=== PATIENT | male | born 1975 | race American Indian/Alaskan Native ===

== ENCOUNTER 2016-04-23 18:06 | Emergency (ER) | payer MEDICAID, OTHER ==
[2016-04-23 18:24] VITALS: BP 143/92
[2016-04-23] MEDS ORDERED: MVI, Adult with Vitamin K 10 ML, Thiamine 100 MG, Folic Acid 1 MG in Lactated Ringers 1... IV ONE ×4 (19:04)
[2016-04-23 19:50] LABS: CHLORIDE,CL 101 mmol/L (101-111); SODIUM,NA 136 mmol/L (135-145)
--- NOTE | 2016-04-23 20:36 | EDM.PDOC ---
ED HPI Behavioral Health - General Chief Complaint: Drug or Alcohol Abuse Stated Complaint: LIVER Time Seen by Provider: 04/23/16 19:05 Source of Information: Reports: Patient Exam Limitations: Reports: No limitations - History of Present Illness INITIAL COMMENTS - FREE TEXT/NARRATIVE: C/O alcohol withdrawal symptoms and unable to sleep. Notes last drink on Thursday. Had been drinking 1/2 gallon of vodka for past week. Has experienced sweats, hearing and seeing things. On arrival was hearing music but that has now resolved. No prior withdrawal seizures. Has been through treatment many times. Starts to drink when alone. Denies other drug use. - Related Data Allergies Allergy/AdvReac Type Severity Reaction Status Date / Time cephalexin Allergy Chills Uncoded 04/23/16 18:25 codeine Allergy Nausea Uncoded 04/23/16 18:25 Home Medications: Home Meds metFORMIN [Glucophage XR] 500 mg PO BIDMEALS 12/23/15 [History] Aspirin 650 mg PO Q4H PRN 04/23/16 [History] Metoprolol Succinate [Toprol XL] 25 mg PO DAILY 04/23/16 [History] atorvaSTATin [Lipitor] 40 mg PO DAILY 04/23/16 [History] Past Medical History - Past Health History Medical/Surgical History: Denies Medical/Surgical History HEENT History: Reports: None Cardiovascular History: Reports: High cholesterol, Hypertension Respiratory History: Reports: Other (see below) Other Respiratory History: tuberculosis Gastrointestinal History: Reports: None Genitourinary History: Reports: None Musculoskeletal History: Reports: None Neurological History: Reports: Head trauma Psychiatric History: Reports: Addiction, Panic attack Endocrine/Metabolic History: Reports: Diabetes, type II Hematologic History: Reports: None Immunologic History: Reports: None Oncologic (Cancer) History: Reports: None Dermatologic History: Reports: None - Infectious Disease History Infectious Disease History: Reports: Chicken pox, TB - Past Surgical History Head Surgeries/Procedures: Reports: None Social & Family History - Family History Family Medical History: Noncontributory - Tobacco Use Smoking Status *Q: Current Every Day Smoker Years of Tobacco use: 1 Packs/Tins Daily: 0.5 Used Tobacco, but Quit: No Second Hand Smoke Exposure: No - Caffeine Use Caffeine Use: Reports: Coffee - Alcohol Use Days Per Week of Alcohol Use: 7 Number of Drinks Per Day: 10 Total Drinks Per Week: 70 Date of Last Drink: 04/23/16 Time of Last Drink: 15:00 - Recreational Drug Use Recreational Drug Use: No Drug Use in Last 12 Months: Yes Recreational Drug Type: Reports: Marijuana/Hashish - Living Situation & Occupation Living situation: Reports: with significant other, with family Occupation: employed ED ROS GENERAL - Review of Systems Review Of Systems: See Below Constitutional: Reports: diaphoresis, decreased appetite HEENT: Reports: No symptoms Respiratory: Reports: no symptoms Cardiovascular: Reports: No symptoms GI/Abdominal: Reports: Nausea (resolved) : Reports: no symptoms Musculoskeletal: Reports: no symptoms Neurological: Denies: tremors Psychiatric: Reports: Anxiety ED EXAM, BEHAVIORAL HEALTH - Physical Exam Exam: See Below Exam Limited By: No limitations General Appearance: alert, no apparent distress Eye Exam: bilateral eye: EOMI, PERRL Ears: normal external exam Nose: normal inspection Throat/Mouth: Normal inspection Head: atraumatic, normocephalic Neck: normal inspection Respiratory/Chest: no respiratory distress, lungs clear, normal breath sounds Cardiovascular: normal peripheral pulses, regular rate, rhythm GI/Abdominal: normal bowel sounds, soft, non tender Extremities: normal inspection Neurological: alert, normal mood/affect, no motor/sensory deficits, oriented x 3 , tremor (fine tremor on arrival ) Psychiatric: alert, normal affect, normal cognition, auditory hallucinations ( resolved), visual hallucinations (resolved) Skin Exam: Warm, Dry, Intact, Tattoo(s) COURSE, BEHAVIORAL HEALTH COMP - Course Vital Signs: Last Vital Signs Temp 98.2 F 04/23/16 18:15 Pulse 100 04/23/16 18:15 Resp 16 04/23/16 18:15 BP 143/92 H 04/23/16 18:15 Pulse Ox 100 04/23/16 18:15 Orders, Labs, Meds: Active Orders 24 hr Category Date Time Status CIWAA Assessment [RC] ONETIME Care 04/23/16 19:06 Active Laboratory Tests 04/23/16 04/23/16 04/23/16 Range/Units 19:08 19:08 19:14 WBC 8.8 (5.0-10.0) 10^3/uL RBC 5.24 (4.6-6.2) 10^6/uL Hgb 16.4 (14.0-18.0) g/dL Hct 47.1 (40.0-54.0) % MCV 89.9 (80-100) fL MCH 31.3 (27.0-34.0) pg MCHC 34.8 (33.0-35.0) g/dL Plt Count 159 (150-450) 10^3/uL Neut % (Auto) 74.4 (42.2-75.2) % Lymph % (Auto) 12.7 L (20.5-50.1) % [place] % (Auto) 7.5 (2-8) % Eos % (Auto) 4.9 H (1.0-3.0) % Baso % (Auto) 0.5 (0.0-1.0) % Sodium (135-145) mmol/L Potassium (3.6-5.0) mmol/L Chloride (101-111) mmol/L Carbon Dioxide (21.0-31.0) mmol/L Anion Gap BUN (7-18) mg/dL Creatinine (0.6-1.3) mg/dL Est Cr Clr Drug Dosing mL/min Estimated GFR (MDRD) BUN/Creatinine Ratio Glucose (74-105) mg/dL Calcium (8.4-10.2) mg/dl Total Bilirubin (0.2-1.0) mg/dL AST (10-42) IU/L ALT (10-60) IU/L Alkaline Phosphatase (42-121) IU/L Ammonia (11-35) umol/L Total Protein (6.7-8.2) g/dl Albumin (3.2-5.5) g/dl Globulin Albumin/Globulin Ratio Amylase (28-100) U/L Lipase (22-51) U/L Urine Color Yellow (YELLOW) Urine Appearance Clear (CLEAR) Urine pH 5.5 (5.0-9.0) Ur Specific [place] 1.020 (1.005-1.030) Urine Protein 30 H (NEGATIVE) Urine Glucose (UA) Negative (NEGATIVE) Urine Ketones 15 H (NEGATIVE) Urine Occult Blood Trace-intact H (NEGATIVE) Urine Nitrite Negative (NEGATIVE) Urine Bilirubin Negative (NEGATIVE) Urine Urobilinogen 0.2 (0.2-1.0) mg/dL Ur Leukocyte Esterase Negative (NEGATIVE) Urine RBC 0-5 /HPF Urine WBC 0-5 (0-5/HPF) /HPF Ur Epithelial Cells Occasional /HPF Urine Bacteria Few (0-FEW/HPF) /HPF Urine Mucus Few H /LPF Urine Opiates Screen Negative (NEGATIVE) Ur Oxycodone Screen Negative (NEGATIVE) Urine Methadone Screen Negative (NEGATIVE) Ur Barbiturates Screen Negative (NEGATIVE) U Tricyclic Antidepress Negative (NEGATIVE) Ur Phencyclidine Scrn Negative (NEGATIVE) Ur Amphetamine Screen Negative (NEGATIVE) U Methamphetamines Scrn Negative (NEGATIVE) Urine MDMA Screen Negative (NEGATIVE) U Benzodiazepines Scrn Negative (NEGATIVE) Urine Cocaine Screen Negative (NEGATIVE) U Marijuana (THC) Screen Negative (NEGATIVE) Ethyl Alcohol mg/dL 04/23/16 04/23/16 Range/Units 19:14 19:14 WBC (5.0-10.0) 10^3/uL RBC (4.6-6.2) 10^6/uL Hgb (14.0-18.0) g/dL Hct (40.0-54.0) % MCV (80-100) fL MCH (27.0-34.0) pg MCHC (33.0-35.0) g/dL Plt Count (150-450) 10^3/uL Neut % (Auto) (42.2-75.2) % Lymph % (Auto) (20.5-50.1) % [place] % (Auto) (2-8) % Eos % (Auto) (1.0-3.0) % Baso % (Auto) (0.0-1.0) % Sodium 136 (135-145) mmol/L Potassium 3.7 (3.6-5.0) mmol/L Chloride 101 (101-111) mmol/L Carbon Dioxide 23.0 (21.0-31.0) mmol/L Anion Gap 15.7 BUN 15 (7-18) mg/dL Creatinine 0.7 (0.6-1.3) mg/dL Est Cr Clr Drug Dosing 159.83 mL/min Estimated GFR (MDRD) > 60 BUN/Creatinine Ratio 21.42 Glucose 119 H (74-105) mg/dL Calcium 9.2 (8.4-10.2) mg/dl Total Bilirubin 0.9 (0.2-1.0) mg/dL AST 53 H (10-42) IU/L ALT 62 H (10-60) IU/L Alkaline Phosphatase 91 (42-121) IU/L Ammonia 22 (11-35) umol/L Total Protein 8.3 H (6.7-8.2) g/dl Albumin 4.8 (3.2-5.5) g/dl Globulin 3.5 Albumin/Globulin Ratio 1.37 Amylase 76 (28-100) U/L Lipase 38 (22-51) U/L Urine Color (YELLOW) Urine Appearance (CLEAR) Urine pH (5.0-9.0) Ur Specific [place] (1.005-1.030) Urine Protein (NEGATIVE) Urine Glucose (UA) (NEGATIVE) Urine Ketones (NEGATIVE) Urine Occult Blood (NEGATIVE) Urine Nitrite (NEGATIVE) Urine Bilirubin (NEGATIVE) Urine Urobilinogen (0.2-1.0) mg/dL Ur Leukocyte Esterase (NEGATIVE) Urine RBC /HPF Urine WBC (0-5/HPF) /HPF Ur Epithelial Cells /HPF Urine Bacteria (0-FEW/HPF) /HPF Urine Mucus /LPF Urine Opiates Screen (NEGATIVE) Ur Oxycodone Screen (NEGATIVE) Urine Methadone Screen (NEGATIVE) Ur Barbiturates Screen (NEGATIVE) U Tricyclic Antidepress (NEGATIVE) Ur Phencyclidine Scrn (NEGATIVE) Ur Amphetamine Screen (NEGATIVE) U Methamphetamines Scrn (NEGATIVE) Urine MDMA Screen (NEGATIVE) U Benzodiazepines Scrn (NEGATIVE) Urine Cocaine Screen (NEGATIVE) U Marijuana (THC) Screen (NEGATIVE) Ethyl Alcohol < 5 mg/dL Medications Discontinued Medications Generic Name Dose Route Start Last Admin Trade Name Freq PRN Reason Stop Dose Admin Multivitamins/Minerals 10 ml/ 1,011.2 mls @ 999 mls/hr 04/23/16 19:04 19:26 Thiamine HCl 100 mg/ Folic IV 04/23/16 20:04 999 mls/hr Acid 1 mg/ Lactated Ringer's .BOLUS ONE Administration Re-Assessment/Re-Exam: tremor resolved following IVF. CIWA 0 Departure - Departure Time of Disposition: 20:34 Disposition: Home, Self-Care 01 Condition: good Clinical Impression: Alcohol withdrawal syndrome Qualifiers: Complication of substance-induced condition: uncomplicated Qualified Code(s): F10.230 - Alcohol dependence with withdrawal, uncomplicated Instructions: Alcohol Use Disorder Referrals: Rakesh Dickens [Ordering Only Provider] - Forms: ED Department Discharge Additional Instructions: Stop drinking consider alcohol treatment again spend time with people who are supportive of sobriety increase fluids - My Orders Last 24 Hours: My Active Orders 04/23/16 19:06 CIWAA Assessment [RC] ONETIME - Assessment/Plan Last 24 Hours: My Active Orders 04/23/16 19:06 CIWAA Assessment [RC] ONETIME
== END 2016-04-23 20:39 | disposition home or self-care (01) ==
LOC: DL.ED 18:06
DX: F10.230 Alcohol dependence with withdrawal, uncomplicated (principal); E78.00 Pure hypercholesterolemia, unspecified; I10 Essential (primary) hypertension; E11.9 Type 2 diabetes mellitus without complications; F17.210 Nicotine dependence, cigarettes, uncomplicated; Z79.82 Long term (current) use of aspirin; Z79.84 Long term (current) use of oral hypoglycemic drugs; Z79.899 Other long term (current) drug therapy
CPT/HCPCS: 36415; 80053; 80305; 81001; 82140; 82150; 83690; 85025; 96365; 99284; G0480; J3411; J7120; J3490

== ENCOUNTER 2017-01-01 17:04 | Emergency (ER) | payer MEDICAID, OTHER ==
[2017-01-01] MEDS ORDERED: Sodium Chloride 0.9% 1,000 ML IV ONE (17:58)
[2017-01-01] MEDS ORDERED: Ketorolac 30 MG/ML SDV IVPUSH ONE (17:58)
[2017-01-01] MEDS ORDERED: Sodium Chloride 0.9% 10 ML Syringe FLUSH PRN (17:58)
[2017-01-01 18:28] VITALS: BP 132/68
[2017-01-01 18:32] LABS: CHLORIDE,CL 104 mmol/L (101-111); SODIUM,NA 138 mmol/L (135-145)
--- NOTE | 2017-01-01 19:03 | EDM.PDOC ---
<Chris Zamora - Last Filed: 01/01/17 19:33> ED HPI GENERAL MEDICAL PROBLEM - General Chief Complaint: Headache Stated Complaint: HEAD SWOLLEN [phone]. NO ID Time Seen by Provider: 01/01/17 17:47 - Related Data Allergies Allergy/AdvReac Type Severity Reaction Status Date / Time cephalexin Allergy Chills Uncoded 01/01/17 17:27 codeine Allergy Nausea Uncoded 01/01/17 17:27 Home Meds: Home Meds metFORMIN [Glucophage XR] 500 mg PO BIDMEALS 12/23/15 [History] Aspirin 650 mg PO Q4H PRN 04/23/16 [History] atorvaSTATin [Lipitor] 40 mg PO DAILY 04/23/16 [History] Propranolol [Propranolol CR 24 Hr] 120 mg PO DAILY 01/01/17 [History] Course - Vital Signs Last Recorded V/S: Last Vital Signs Temp 99.9 F 01/01/17 18:27 Pulse 92 01/01/17 18:27 Resp 16 01/01/17 18:27 BP 132/68 01/01/17 18:27 Pulse Ox 97 01/01/17 18:27 - Orders/Labs/Meds Orders: Active Orders 24 hr Category Date Time Status Peripheral IV Care [RC] . DIRECTED Care 01/01/17 17:58 Active Peripheral IV Insertion Adult [OM.PC] Stat Oth 01/01/17 17:58 Ordered Labs: Laboratory Tests 01/01/17 01/01/17 01/01/17 Range/Units 18:04 18:04 18:04 WBC 11.3 H (5.0-10.0) 10^3/uL RBC 5.06 (4.6-6.2) 10^6/uL Hgb 16.1 (14.0-18.0) g/dL Hct 46.5 (40.0-54.0) % MCV 91.9 (80-100) fL MCH 31.8 (27.0-34.0) pg MCHC 34.6 (33.0-35.0) g/dL Plt Count 236 D (150-450) 10^3/uL Neut % (Auto) 71.8 (42.2-75.2) % Lymph % (Auto) 14.3 L (20.5-50.1) % [place] % (Auto) 10.5 H (2-8) % Eos % (Auto) 2.9 (1.0-3.0) % Baso % (Auto) 0.5 (0.0-1.0) % ESR 5 (0-15) mm/hr Sodium 138 (135-145) mmol/L Potassium 3.9 (3.6-5.0) mmol/L Chloride 104 (101-111) mmol/L Carbon Dioxide 21.0 (21.0-31.0) mmol/L Anion Gap 16.9 BUN 10 (7-18) mg/dL Creatinine 0.9 (0.6-1.3) mg/dL Est Cr Clr Drug Dosing 124.31 mL/min Estimated GFR (MDRD) > 60 BUN/Creatinine Ratio 11.11 Glucose 114 H (74-105) mg/dL Calcium 9.6 (8.4-10.2) mg/dl Total Bilirubin 0.9 (0.2-1.0) mg/dL AST 25 (10-42) IU/L ALT 21 (10-60) IU/L Alkaline Phosphatase 90 (42-121) IU/L C-Reactive Protein 1.6 H (0.0-1.3) mg/dL Total Protein 8.3 H (6.7-8.2) g/dl Albumin 4.9 (3.2-5.5) g/dl Globulin 3.4 Albumin/Globulin Ratio 1.44 Meds: Medications Discontinued Medications Generic Name Dose Route Start Last Admin Trade Name Freq PRN Reason Stop Dose Admin Ciprofloxacin 500 mg 01/01/17 19:27 Ciprofloxacin Hcl PO 01/01/17 19:28 ONETIME ONE Sodium Chloride 1,000 mls @ 999 mls/hr 01/01/17 17:58 01/01/17 18:06 Normal Saline IV 01/01/17 18:58 999 mls/hr .BOLUS ONE Administration Ketorolac Tromethamine 30 mg 01/01/17 17:58 01/01/17 18:08 Toradol IVPUSH 01/01/17 17:59 30 mg ONETIME ONE Administration Sodium Chloride 10 ml 01/01/17 17:58 01/01/17 18:09 Saline Flush FLUSH 10 ml ASDIRECTED PRN Administration Keep Vein Open Departure - Departure Time of Disposition: 19:34 Condition: Good Clinical Impression: Adenitis, acute - Discharge Information Referrals: Gardenia Cm MD [Primary Care Provider] - Forms: ED Department Discharge Additional Instructions: Take medication a sprescribed and complete: CIPRO 500mg BID # 14 F/U w/ PCP - My Orders Last 24 Hours: My Active Orders 01/01/17 17:58 Peripheral IV Care [RC] . DIRECTED Peripheral IV Insertion Adult [OM.PC] Stat - Assessment/Plan Last 24 Hours: My Active Orders 01/01/17 17:58 Peripheral IV Care [RC] . DIRECTED Peripheral IV Insertion Adult [OM.PC] Stat <Mariel Porter - Last Filed: 01/02/17 07:44> ED HPI GENERAL MEDICAL PROBLEM - General Source of Information: Reports: Patient History Limitations: Reports: No Limitations - History of Present Illness INITIAL COMMENTS - FREE TEXT/NARRATIVE: Pt presents to the ER with c/o swelling and tenderness behind the left ear. He states this has happened in the past but has resolved, this time it began approximately 1 hour ago. He states he has an extensive past medical history including migraines. He states he has a headache today which he rates a 7-8/10, and he is sensitive to light and noise. He admits to having medication to take for his headaches, but he has not taken it today. He denies recent illness, but states he may have had a fever today. Admits to nausea with headache, but denies vomiting. Onset: Today, Sudden Location: Reports: Head Quality: Reports: Throbbing Severity: Moderate Improves with: Reports: None Worsens with: Reports: None Associated Symptoms: Reports: Headaches, Nausea/Vomiting Headache Pain Score (Numeric/FACES): 8 Past Medical History - Past Health History Medical/Surgical History: Denies Medical/Surgical History HEENT History: Reports: None Cardiovascular History: Reports: High Cholesterol, Hypertension Respiratory History: Reports: Other (See Below) Other Respiratory History: tuberculosis Gastrointestinal History: Reports: None Genitourinary History: Reports: None Musculoskeletal History: Reports: None Neurological History: Reports: Headaches, Chronic, Head Trauma, Migraines Psychiatric History: Reports: Addiction, Panic Attack Endocrine/Metabolic History: Reports: Diabetes, Type II Hematologic History: Reports: None Immunologic History: Reports: None Oncologic (Cancer) History: Reports: None Dermatologic History: Reports: None - Infectious Disease History Infectious Disease History: Reports: Chicken Pox, TB - Past Surgical History Head Surgeries/Procedures: Reports: None Social & Family History - Family History Family Medical History: Noncontributory - Tobacco Use Smoking Status *Q: Current Every Day Smoker Years of Tobacco use: 5 Packs/Tins Daily: 0.5 Used Tobacco, but Quit: No Second Hand Smoke Exposure: No - Caffeine Use Caffeine Use: Reports: Coffee - Alcohol Use Days Per Week of Alcohol Use: 7 Number of Drinks Per Day: 10 Total Drinks Per Week: 70 - Recreational Drug Use Recreational Drug Use: No Drug Use in Last 12 Months: Yes Recreational Drug Type: Reports: Marijuana/Hashish - Living Situation & Occupation Living situation: Reports: with Significant Other, with Family Occupation: Employed ED ROS ENT - Review of Systems Review Of Systems: ROS reveals no pertinent complaints other than HPI. ED EXAM, ENT - Physical Exam Exam: See Below Exam Limited By: No Limitations General Appearance: Alert, WD/WN, No Apparent Distress Eye Exam: Bilateral Eye: Normal Inspection Ears: Normal External Exam, Normal Canal, Hearing Grossly Normal, Normal TMs, Auricular Erythema, Auricular Tenderness Nose: Normal Inspection, Normal Mucousa, No Blood Mouth/Throat: Normal Inspection, Normal Gums, Normal Lips, Normal Oropharynx, Normal Teeth Head: Atraumatic, Normocephalic, Other (L preauricular node enlargement) Neck: Normal Inspection, Supple, Full Range of Motion, Lymphadenopathy (L), Tender Lateral (left lymphadenopathy) Respiratory/Chest: No Respiratory Distress, Lungs Clear, Normal Breath Sounds, No Accessory Muscle Use, Chest Non-Tender Cardiovascular: Normal Peripheral Pulses, Regular Rate, Rhythm, No Edema, No Gallop, No JVD, No Murmur, No Rub GI/Abdominal: Normal Bowel Sounds, Soft, Non-Tender, No Organomegaly, No Distention, No Abnormal Bruit, No Mass (Male) Exam: Deferred Rectal (Males) Exam: Deferred Back: Normal Inspection, Full Range of Motion Extremities: Normal Inspection, Normal Range of Motion, Non-Tender, No Pedal Edema, Normal Capillary Refill Neurological: Alert, Oriented, CN II-XII Intact, Normal Cognition, Normal Gait, No Motor/Sensory Deficits Psychiatric: Normal Affect, Normal Mood Skin: Warm, Dry, Intact, Normal Color, No Rash Lymphatic: Other (left submental, anterior/posterior cervical)
[2017-01-01] MEDS ORDERED: Ciprofloxacin 500 MG Tab PO ONE (19:27)
== END 2017-01-01 19:39 ==
LOC: DL.ED 17:04
DX: L04.9 Acute lymphadenitis, unspecified (principal); I10 Essential (primary) hypertension; E78.00 Pure hypercholesterolemia, unspecified; E11.9 Type 2 diabetes mellitus without complications; F17.210 Nicotine dependence, cigarettes, uncomplicated; Z79.84 Long term (current) use of oral hypoglycemic drugs; Z79.82 Long term (current) use of aspirin; Z79.899 Other long term (current) drug therapy; Z88.1 Allergy status to other antibiotic agents; Z88.5 Allergy status to narcotic agent
CPT/HCPCS: 36415; 80053; 85025; 85651; 86140; 96361; 96374; 99284; J1885; J7030; J7050